=== PATIENT | female | born 1955 | race Caucasian/White ===

== ENCOUNTER 2018-03-18 17:10 | Inpatient (IN) | payer BC ==
[2018-03-18] MEDS ORDERED: ACETAMINOPHEN 325 MG TAB PO (19:00)
[2018-03-18] MEDS: hydrALAzine 20 MG INJ IV (19:11)
[2018-03-18] MEDS ORDERED: LORAZEPAM 2 MG INJ IV (20:00)
[2018-03-18] MEDS ORDERED: ONDANSETRON 4 MG INJ IV (20:00)
[2018-03-18] MEDS: LOSARTAN 50 MG TAB PO (20:59)
[2018-03-18] MEDS: CHLORDIAZEPOXIDE 25 MG CAP PO (20:59)
[2018-03-18] MEDS: LORAZEPAM 1 MG TAB PO (20:59)
[2018-03-18] MEDS: DEXTROSE 5%-0.45% NACL 1,000 ML IV (21:01)
[2018-03-19] MEDS: DEXTROSE 5%-0.45% NACL 1,000 ML IV ×3 (05:00→20:22)
[2018-03-19 06:01] LABS: ADD MAN DIFF? NO
[2018-03-19 06:19] LABS: BASOPHILS % 0.6 % (0.0-2.0); EOSINOPHILS # 0.1 10^3/ul (0.0-0.5); EOSINOPHILS % 1.9 % (0.0-7.0); HEMATOCRIT 38.6 % (37.0-47.0); HEMOGLOBIN 13.5 g/dl (12.0-16.0); LYMPHOCYTES # 1.2 10^3/ul (0.8-2.9); LYMPHOCYTES % 33.9 % (15.0-51.0); MEAN CORPUSCULAR HEMOGLOBIN 35.6 pg (29.0-33.0); MEAN CORPUSCULAR VOLUME 101.8 fl (82.0-101.0); MEAN PLATELET VOLUME 9.6 fl (7.4-10.4); MONOCYTE # 0.6 10^3/ul (0.3-0.9); MONOCYTES % 16.5 % (0.0-11.0); NEUTROPHIL # 1.7 10^3/ul (1.6-7.5); NEUTROPHILS % 46.8 % (39.0-77.0); PLATELET COUNT 120 10^3/UL (140-415); RED BLOOD COUNT 3.79 10^6/ul (4.20-5.40)
[2018-03-19 06:19] LABS: WHITE BLOOD COUNT 3.6 10^3/ul (4.8-10.8)
[2018-03-19] MEDS: PANTOPRAZOLE (EC) 40 MG TAB PO (06:59)
[2018-03-19 07:21] LABS: ALANINE AMINOTRANSFERASE 54 IU/L (13-69); ALBUMIN 3.8 g/dl (3.3-4.9); ALBUMIN/GLOBULIN RATIO 1.52; ALKALINE PHOSPHATASE 43 IU/L (42-121); ANION GAP 16 (8-16); ASPARTATE AMINO TRANSFERASE 68 IU/L (15-46); BILIRUBIN,INDIRECT 0.6 mg/dl (0-1.1); BILIRUBIN,TOTAL 0.6 mg/dl (0.2-1.3); BLOOD UREA NITROGEN 7 mg/dl (7-20); CALCIUM 8.7 mg/dl (8.4-10.2); CARBON DIOXIDE 21 mmol/L (21-31); CHLORIDE 104 mmol/L (97-110); CREATININE 0.61 mg/dl (0.44-1.00); GLUCOSE 115 mg/dl (70-220); MAGNESIUM 1.7 mg/dl (1.7-2.5); PHOSPHORUS 4.3 mg/dl (2.5-4.9); SODIUM 137 mmol/L (135-144); TOTAL PROTEIN 6.3 g/dl (6.1-8.1)
[2018-03-19] MEDS: LORAZEPAM 1 MG TAB PO ×2 (08:29→20:19)
[2018-03-19] MEDS: CHLORDIAZEPOXIDE 25 MG CAP PO ×3 (08:30→20:21)
[2018-03-19] MEDS: LOSARTAN 50 MG TAB PO ×2 (08:33→20:21)
[2018-03-19] MEDS: ATENOLOL 50 MG TAB PO (08:33)
[2018-03-19] MEDS: MULTIVITAMINS 10 ML, THIAMINE 100 MG, FOLIC ACID 1 MG in SOD CHLORIDE 0.9% 1,000 ML IVPB (09:40)
[2018-03-19] MEDS: CHOLECALCIFEROL 2,000 UNIT CAP PO (12:36)
[2018-03-20] MEDS: hydrALAzine 20 MG INJ IV ×2 (02:57→19:51)
[2018-03-20] MEDS: PANTOPRAZOLE (EC) 40 MG TAB PO (06:14)
[2018-03-20] MEDS: DEXTROSE 5%-0.45% NACL 1,000 ML IV ×2 (06:34→20:17)
[2018-03-20 07:16] LABS: ANION GAP 13 (8-16); BLOOD UREA NITROGEN 8 mg/dl (7-20); CALCIUM 8.9 mg/dl (8.4-10.2); CARBON DIOXIDE 20 mmol/L (21-31); CHLORIDE 112 mmol/L (97-110); CREATININE 0.63 mg/dl (0.44-1.00); GLUCOSE 102 mg/dl (70-220); POTASSIUM 3.6 mmol/L (3.5-5.1); SODIUM 141 mmol/L (135-144)
[2018-03-20] MEDS: LOSARTAN 50 MG TAB PO ×2 (09:10→20:18)
[2018-03-20] MEDS: ATENOLOL 50 MG TAB PO (09:11)
[2018-03-20] MEDS: CHOLECALCIFEROL 2,000 UNIT CAP PO (09:11)
[2018-03-20] MEDS: CHLORDIAZEPOXIDE 25 MG CAP PO ×3 (09:12→20:19)
[2018-03-20] MEDS: MULTIVITAMINS 10 ML, THIAMINE 100 MG, FOLIC ACID 1 MG in SOD CHLORIDE 0.9% 1,000 ML IVPB (09:12)
[2018-03-20] MEDS: LORAZEPAM 1 MG TAB PO ×2 (09:12→20:19)
[2018-03-21] MEDS: hydrALAzine 20 MG INJ IV (00:09)
[2018-03-21] MEDS: DEXTROSE 5%-0.45% NACL 1,000 ML IV ×2 (01:33→06:03)
[2018-03-21] MEDS: PANTOPRAZOLE (EC) 40 MG TAB PO (05:45)
[2018-03-21] MEDS: ATENOLOL 50 MG TAB PO (07:52)
[2018-03-21] MEDS: DOCUSATE SODIUM 100 MG CAP PO (07:53)
[2018-03-21] MEDS: LORAZEPAM 1 MG TAB PO ×2 (07:53→21:28)
[2018-03-21] MEDS: CHLORDIAZEPOXIDE 25 MG CAP PO ×3 (07:53→21:28)
[2018-03-21] MEDS: LOSARTAN 50 MG TAB PO ×2 (07:53→21:29)
[2018-03-21] MEDS: CHOLECALCIFEROL 2,000 UNIT CAP PO (07:53)
[2018-03-21] MEDS: MULTIVITAMINS 10 ML, THIAMINE 100 MG, FOLIC ACID 1 MG in SOD CHLORIDE 0.9% 1,000 ML IVPB (09:52)
[2018-03-22] MEDS: PANTOPRAZOLE (EC) 40 MG TAB PO (05:53)
[2018-03-22 06:37] LABS: PHOSPHORUS 4.2 mg/dl (2.5-4.9)
[2018-03-22 06:37] LABS: ALANINE AMINOTRANSFERASE 55 IU/L (13-69); ALBUMIN 3.3 g/dl (3.3-4.9); ALBUMIN/GLOBULIN RATIO 1.17; ALKALINE PHOSPHATASE 47 IU/L (42-121); ANION GAP 11 (8-16); ASPARTATE AMINO TRANSFERASE 42 IU/L (15-46); BILIRUBIN,INDIRECT 0.6 mg/dl (0-1.1); BILIRUBIN,TOTAL 0.6 mg/dl (0.2-1.3); BLOOD UREA NITROGEN 12 mg/dl (7-20); CALCIUM 8.5 mg/dl (8.4-10.2); CARBON DIOXIDE 22 mmol/L (21-31); CHLORIDE 109 mmol/L (97-110); CREATININE 0.63 mg/dl (0.44-1.00); GLUCOSE 92 mg/dl (70-220); MAGNESIUM 1.5 mg/dl (1.7-2.5); POTASSIUM 3.4 mmol/L (3.5-5.1); SODIUM 139 mmol/L (135-144); TOTAL PROTEIN 6.1 g/dl (6.1-8.1)
[2018-03-22] MEDS: LORAZEPAM 1 MG TAB PO ×2 (08:20→20:58)
[2018-03-22] MEDS: CHOLECALCIFEROL 2,000 UNIT CAP PO (08:20)
[2018-03-22] MEDS: CHLORDIAZEPOXIDE 25 MG CAP PO ×3 (08:21→20:58)
[2018-03-22] MEDS: LOSARTAN 50 MG TAB PO ×2 (08:21→20:57)
[2018-03-22] MEDS: ATENOLOL 50 MG TAB PO (08:21)
[2018-03-22] MEDS: MULTIVITAMINS 10 ML, THIAMINE 100 MG, FOLIC ACID 1 MG in SOD CHLORIDE 0.9% 1,000 ML IVPB (08:25)
[2018-03-22] MEDS: MAGNESIUM SULFATE 2 GM/50 ML 50 ML IVPB (19:46)
[2018-03-22] MEDS: POTASSIUM CHLORIDE (SR) 20 MEQ TAB PO (19:46)
[2018-03-23] MEDS: PANTOPRAZOLE (EC) 40 MG TAB PO (05:34)
[2018-03-23 06:29] LABS: ADD MAN DIFF? NO
[2018-03-23 06:38] LABS: WHITE BLOOD COUNT 4.8 10^3/ul (4.8-10.8)
[2018-03-23 06:38] LABS: BASOPHIL # 0.1 10^3/ul (0.0-0.1); EOSINOPHILS # 0.1 10^3/ul (0.0-0.5); EOSINOPHILS % 1.5 % (0.0-7.0); HEMATOCRIT 38.3 % (37.0-47.0); LYMPHOCYTES # 1.6 10^3/ul (0.8-2.9); LYMPHOCYTES % 33.6 % (15.0-51.0); MEAN CORPUSCULAR HEMOGLOBIN 34.9 pg (29.0-33.0); MEAN CORPUSCULAR HGB CONC 33.9 g/dl (32.0-37.0); MEAN CORPUSCULAR VOLUME 102.7 fl (82.0-101.0); MEAN PLATELET VOLUME 8.5 fl (7.4-10.4); MONOCYTE # 0.9 10^3/ul (0.3-0.9); MONOCYTES % 18.4 % (0.0-11.0); NEUTROPHIL # 2.2 10^3/ul (1.6-7.5); NEUTROPHILS % 45.3 % (39.0-77.0); PLATELET COUNT 163 10^3/UL (140-415); RED BLOOD COUNT 3.73 10^6/ul (4.20-5.40); RED CELL DISTRIBUTION WIDTH 11.6 % (11.5-14.5)
[2018-03-23 06:59] LABS: ANION GAP 14 (8-16); BLOOD UREA NITROGEN 11 mg/dl (7-20); CALCIUM 8.6 mg/dl (8.4-10.2); CARBON DIOXIDE 21 mmol/L (21-31); CHLORIDE 108 mmol/L (97-110); CREATININE 0.61 mg/dl (0.44-1.00); GLUCOSE 84 mg/dl (70-220); POTASSIUM 3.9 mmol/L (3.5-5.1); SODIUM 139 mmol/L (135-144)
[2018-03-23 07:06] LABS: MAGNESIUM 2.1 mg/dl (1.7-2.5)
[2018-03-23 07:06] LABS: PHOSPHORUS 3.6 mg/dl (2.5-4.9)
[2018-03-23] MEDS: ATENOLOL 50 MG TAB PO (09:10)
[2018-03-23] MEDS: CHOLECALCIFEROL 2,000 UNIT CAP PO (09:10)
[2018-03-23] MEDS: CHLORDIAZEPOXIDE 25 MG CAP PO ×2 (09:11→22:47)
[2018-03-23] MEDS: LORAZEPAM 1 MG TAB PO ×2 (09:11→22:46)
[2018-03-23] MEDS: LOSARTAN 50 MG TAB PO ×2 (09:11→22:47)
[2018-03-23] MEDS: MULTIVITAMINS 10 ML, THIAMINE 100 MG, FOLIC ACID 1 MG in SOD CHLORIDE 0.9% 1,000 ML IVPB (09:12)
[2018-03-23] MEDS: DOCUSATE SODIUM 100 MG CAP PO (09:21)
[2018-03-23] MEDS: AMLODIPINE 10 MG TAB PO (10:49)
[2018-03-23] MEDS: POLYETHYLENE GLYCOL 17 GM PACKET PO (18:55)
[2018-03-24] MEDS: hydrALAzine 20 MG INJ IV (03:20)
[2018-03-24] MEDS: PANTOPRAZOLE (EC) 40 MG TAB PO (06:00)
[2018-03-24] MEDS: MULTIVITAMINS 10 ML, THIAMINE 100 MG, FOLIC ACID 1 MG in SOD CHLORIDE 0.9% 1,000 ML IVPB (09:18)
[2018-03-24] MEDS: LORAZEPAM 1 MG TAB PO (09:18)
[2018-03-24] MEDS: LOSARTAN 50 MG TAB PO ×2 (09:18→21:29)
[2018-03-24] MEDS: CHLORDIAZEPOXIDE 25 MG CAP PO ×2 (09:18→21:29)
[2018-03-24] MEDS: POLYETHYLENE GLYCOL 17 GM PACKET PO (09:19)
[2018-03-24] MEDS: AMLODIPINE 10 MG TAB PO (09:19)
[2018-03-24] MEDS: CHOLECALCIFEROL 2,000 UNIT CAP PO (09:19)
[2018-03-24] MEDS: DOCUSATE SODIUM 100 MG CAP PO (09:19)
[2018-03-24] MEDS: ATENOLOL 50 MG TAB PO (09:19)
[2018-03-24 13:01] LABS: ANION GAP 12 (8-16); BLOOD UREA NITROGEN 8 mg/dl (7-20); CALCIUM 8.9 mg/dl (8.4-10.2); CARBON DIOXIDE 22 mmol/L (21-31); CHLORIDE 110 mmol/L (97-110); CREATININE 0.63 mg/dl (0.44-1.00); GLUCOSE 112 mg/dl (70-220); POTASSIUM 3.8 mmol/L (3.5-5.1); SODIUM 140 mmol/L (135-144)
[2018-03-24 13:02] LABS: PHOSPHORUS 4.3 mg/dl (2.5-4.9)
[2018-03-24 13:02] LABS: MAGNESIUM 1.7 mg/dl (1.7-2.5)
[2018-03-24] MEDS: NA PHOSPHATE/BIPHOS 133 ML ENEMA PR (17:35)
[2018-03-25] MEDS: PANTOPRAZOLE (EC) 40 MG TAB PO (06:25)
[2018-03-25] MEDS: LORAZEPAM 1 MG TAB PO (09:07)
[2018-03-25] MEDS: ATENOLOL 50 MG TAB PO (09:07)
[2018-03-25] MEDS: MULTIVITAMINS 10 ML, THIAMINE 100 MG, FOLIC ACID 1 MG in SOD CHLORIDE 0.9% 1,000 ML IVPB (09:07)
[2018-03-25] MEDS: CHOLECALCIFEROL 2,000 UNIT CAP PO (09:08)
[2018-03-25] MEDS: AMLODIPINE 10 MG TAB PO (09:08)
[2018-03-25] MEDS: LOSARTAN 50 MG TAB PO ×2 (09:08→21:39)
[2018-03-25] MEDS: CHLORDIAZEPOXIDE 25 MG CAP PO ×2 (09:08→21:39)
[2018-03-25] MEDS: POLYETHYLENE GLYCOL 17 GM PACKET PO (09:08)
[2018-03-26] MEDS: PANTOPRAZOLE (EC) 40 MG TAB PO (05:47)
[2018-03-26] MEDS: CHOLECALCIFEROL 2,000 UNIT CAP PO (08:44)
[2018-03-26] MEDS: LOSARTAN 50 MG TAB PO ×2 (08:44→20:46)
[2018-03-26] MEDS: THIAMINE 100 MG TAB PO (08:44)
[2018-03-26] MEDS: FOLIC ACID 0.4 MG TAB PO (08:44)
[2018-03-26] MEDS: ATENOLOL 50 MG TAB PO (08:44)
[2018-03-26] MEDS: CHLORDIAZEPOXIDE 25 MG CAP PO (08:44)
[2018-03-26] MEDS: POLYETHYLENE GLYCOL 17 GM PACKET PO (08:51)
[2018-03-27] MEDS: PANTOPRAZOLE (EC) 40 MG TAB PO (06:33)
[2018-03-27] MEDS: FOLIC ACID 0.4 MG TAB PO (09:16)
[2018-03-27] MEDS: CHOLECALCIFEROL 2,000 UNIT CAP PO (09:16)
[2018-03-27] MEDS: ATENOLOL 50 MG TAB PO (09:16)
[2018-03-27] MEDS: LOSARTAN 50 MG TAB PO ×2 (09:17→20:56)
[2018-03-27] MEDS: POLYETHYLENE GLYCOL 17 GM PACKET PO (09:17)
[2018-03-27] MEDS: CHLORDIAZEPOXIDE 25 MG CAP PO (09:20)
[2018-03-27] MEDS: THIAMINE 100 MG TAB PO (09:23)
[2018-03-28] MEDS: PANTOPRAZOLE (EC) 40 MG TAB PO (05:58)
[2018-03-28] MEDS: POLYETHYLENE GLYCOL 17 GM PACKET PO (09:00)
[2018-03-28] MEDS: CHOLECALCIFEROL 2,000 UNIT CAP PO (09:04)
[2018-03-28] MEDS: ATENOLOL 50 MG TAB PO (09:04)
[2018-03-28] MEDS: FOLIC ACID 0.4 MG TAB PO (09:04)
[2018-03-28] MEDS: LOSARTAN 50 MG TAB PO ×2 (09:05→20:14)
[2018-03-28] MEDS: CHLORDIAZEPOXIDE 25 MG CAP PO (09:05)
[2018-03-28] MEDS: THIAMINE 100 MG TAB PO (09:06)
[2018-03-29] MEDS: PANTOPRAZOLE (EC) 40 MG TAB PO (05:48)
[2018-03-29 07:34] LABS: ADD MAN DIFF? NO
[2018-03-29 07:48] LABS: BASOPHIL # 0.1 10^3/ul (0.0-0.1); BASOPHILS % 0.9 % (0.0-2.0); EOSINOPHILS # 0.1 10^3/ul (0.0-0.5); EOSINOPHILS % 1.3 % (0.0-7.0); HEMOGLOBIN 15.9 g/dl (12.0-16.0); LYMPHOCYTES # 1.7 10^3/ul (0.8-2.9); LYMPHOCYTES % 31.5 % (15.0-51.0); MEAN CORPUSCULAR HEMOGLOBIN 34.1 pg (29.0-33.0); MEAN CORPUSCULAR HGB CONC 33.8 g/dl (32.0-37.0); MEAN CORPUSCULAR VOLUME 100.9 fl (82.0-101.0); MONOCYTE # 0.6 10^3/ul (0.3-0.9); MONOCYTES % 10.5 % (0.0-11.0); NEUTROPHIL # 3.1 10^3/ul (1.6-7.5); NEUTROPHILS % 55.4 % (39.0-77.0); RED BLOOD COUNT 4.66 10^6/ul (4.20-5.40); RED CELL DISTRIBUTION WIDTH 11.7 % (11.5-14.5)
[2018-03-29 07:48] LABS: WHITE BLOOD COUNT 5.5 10^3/ul (4.8-10.8)
[2018-03-29 07:51] LABS: MEAN PLATELET VOLUME 10.5 fl (7.4-10.4); PLATELET COUNT 212 10^3/UL (140-415); POSITIVE DIFF @See below
[2018-03-29] MEDS: THIAMINE 100 MG TAB PO (08:03)
[2018-03-29] MEDS: CHLORDIAZEPOXIDE 25 MG CAP PO (08:03)
[2018-03-29] MEDS: DOCUSATE SODIUM 100 MG CAP PO (08:03)
[2018-03-29] MEDS: FOLIC ACID 0.4 MG TAB PO (08:03)
[2018-03-29] MEDS: CHOLECALCIFEROL 2,000 UNIT CAP PO (08:03)
[2018-03-29] MEDS: LOSARTAN 50 MG TAB PO ×2 (08:04→20:19)
[2018-03-29] MEDS: ATENOLOL 50 MG TAB PO (08:04)
[2018-03-29] MEDS: POLYETHYLENE GLYCOL 17 GM PACKET PO (08:05)
[2018-03-29 12:00] LABS: ALANINE AMINOTRANSFERASE 46 IU/L (13-69); ALBUMIN 3.7 g/dl (3.3-4.9); ALBUMIN/GLOBULIN RATIO 1.27; ALKALINE PHOSPHATASE 50 IU/L (42-121); ANION GAP 17 (8-16); ASPARTATE AMINO TRANSFERASE 48 IU/L (15-46); BILIRUBIN,INDIRECT 0.5 mg/dl (0-1.1); BILIRUBIN,TOTAL 0.5 mg/dl (0.2-1.3); BLOOD UREA NITROGEN 12 mg/dl (7-20); CALCIUM 9.1 mg/dl (8.4-10.2); CARBON DIOXIDE 20 mmol/L (21-31); CHLORIDE 106 mmol/L (97-110); CREATININE 0.66 mg/dl (0.44-1.00); GLUCOSE 169 mg/dl (70-220); POTASSIUM 3.7 mmol/L (3.5-5.1); SODIUM 139 mmol/L (135-144); TOTAL PROTEIN 6.6 g/dl (6.1-8.1)
[2018-03-30] MEDS: PANTOPRAZOLE (EC) 40 MG TAB PO (06:11)
[2018-03-30] MEDS: FOLIC ACID 0.4 MG TAB PO (08:07)
[2018-03-30] MEDS: CHOLECALCIFEROL 2,000 UNIT CAP PO (08:07)
[2018-03-30] MEDS: LOSARTAN 50 MG TAB PO ×2 (08:07→20:35)
[2018-03-30] MEDS: THIAMINE 100 MG TAB PO (08:07)
[2018-03-30] MEDS: CHLORDIAZEPOXIDE 25 MG CAP PO (08:07)
[2018-03-30] MEDS: POLYETHYLENE GLYCOL 17 GM PACKET PO (08:08)
[2018-03-30] MEDS: ATENOLOL 50 MG TAB PO (08:08)
[2018-03-31] MEDS: PANTOPRAZOLE (EC) 40 MG TAB PO (06:11)
[2018-03-31 06:54] LABS: ANION GAP 13 (8-16); BLOOD UREA NITROGEN 12 mg/dl (7-20); CALCIUM 9.4 mg/dl (8.4-10.2); CARBON DIOXIDE 28 mmol/L (21-31); CHLORIDE 105 mmol/L (97-110); CREATININE 0.76 mg/dl (0.44-1.00); GLUCOSE 120 mg/dl (70-220); SODIUM 142 mmol/L (135-144)
[2018-03-31] MEDS: LOSARTAN 50 MG TAB PO ×2 (08:24→20:37)
[2018-03-31] MEDS: THIAMINE 100 MG TAB PO (08:25)
[2018-03-31] MEDS: ATENOLOL 50 MG TAB PO (08:25)
[2018-03-31] MEDS: CHOLECALCIFEROL 2,000 UNIT CAP PO (08:25)
[2018-03-31] MEDS: FOLIC ACID 0.4 MG TAB PO (08:25)
[2018-03-31] MEDS: POLYETHYLENE GLYCOL 17 GM PACKET PO ×2 (08:25→08:29)
[2018-03-31] MEDS: CHLORDIAZEPOXIDE 25 MG CAP PO (08:26)
[2018-04-01] MEDS: PANTOPRAZOLE (EC) 40 MG TAB PO (05:52)
[2018-04-01] MEDS: FOLIC ACID 0.4 MG TAB PO (08:20)
[2018-04-01] MEDS: CHOLECALCIFEROL 2,000 UNIT CAP PO (08:20)
[2018-04-01] MEDS: POLYETHYLENE GLYCOL 17 GM PACKET PO (08:20)
[2018-04-01] MEDS: ATENOLOL 50 MG TAB PO (08:20)
[2018-04-01] MEDS: LOSARTAN 50 MG TAB PO ×2 (08:20→21:57)
[2018-04-01] MEDS: THIAMINE 100 MG TAB PO (08:20)
[2018-04-01] MEDS: CHLORDIAZEPOXIDE 25 MG CAP PO (08:21)
[2018-04-02] MEDS: PANTOPRAZOLE (EC) 40 MG TAB PO (06:23)
[2018-04-02] MEDS: POLYETHYLENE GLYCOL 17 GM PACKET PO ×2 (09:38→09:40)
[2018-04-02] MEDS: FOLIC ACID 0.4 MG TAB PO (09:39)
[2018-04-02] MEDS: ATENOLOL 50 MG TAB PO (09:39)
[2018-04-02] MEDS: LOSARTAN 50 MG TAB PO ×2 (09:39→20:35)
[2018-04-02] MEDS: THIAMINE 100 MG TAB PO (09:39)
[2018-04-02] MEDS: CHOLECALCIFEROL 2,000 UNIT CAP PO (09:39)
[2018-04-02] MEDS: CHLORDIAZEPOXIDE 25 MG CAP PO (09:39)
[2018-04-03] MEDS: PANTOPRAZOLE (EC) 40 MG TAB PO (05:51)
[2018-04-03] MEDS: CHLORDIAZEPOXIDE 25 MG CAP PO (09:16)
[2018-04-03] MEDS: THIAMINE 100 MG TAB PO (09:16)
[2018-04-03] MEDS: POLYETHYLENE GLYCOL 17 GM PACKET PO (09:16)
[2018-04-03] MEDS: CHOLECALCIFEROL 2,000 UNIT CAP PO (09:16)
[2018-04-03] MEDS: FOLIC ACID 0.4 MG TAB PO (09:16)
[2018-04-03] MEDS: LOSARTAN 50 MG TAB PO ×2 (09:17→21:40)
[2018-04-03] MEDS: ATENOLOL 50 MG TAB PO (09:17)
[2018-04-04] MEDS: PANTOPRAZOLE (EC) 40 MG TAB PO (06:22)
[2018-04-04] MEDS: POLYETHYLENE GLYCOL 17 GM PACKET PO (09:00)
[2018-04-04] MEDS: ATENOLOL 50 MG TAB PO (10:04)
[2018-04-04] MEDS: LOSARTAN 50 MG TAB PO ×2 (10:04→20:52)
[2018-04-04] MEDS: CHOLECALCIFEROL 2,000 UNIT CAP PO (10:04)
[2018-04-04] MEDS: FOLIC ACID 0.4 MG TAB PO (10:04)
[2018-04-04] MEDS: THIAMINE 100 MG TAB PO (10:05)
[2018-04-05] MEDS: PANTOPRAZOLE (EC) 40 MG TAB PO (05:47)
[2018-04-05 07:25] LABS: PHOSPHORUS 4.6 mg/dl (2.5-4.9)
[2018-04-05 07:25] LABS: MAGNESIUM 1.5 mg/dl (1.7-2.5)
[2018-04-05 07:29] LABS: ALANINE AMINOTRANSFERASE 43 IU/L (13-69); ALBUMIN/GLOBULIN RATIO 1.29; ALKALINE PHOSPHATASE 50 IU/L (42-121); ANION GAP 16 (8-16); ASPARTATE AMINO TRANSFERASE 38 IU/L (15-46); BILIRUBIN,INDIRECT 0.5 mg/dl (0-1.1); BILIRUBIN,TOTAL 0.5 mg/dl (0.2-1.3); BLOOD UREA NITROGEN 13 mg/dl (7-20); CALCIUM 9.3 mg/dl (8.4-10.2); CARBON DIOXIDE 25 mmol/L (21-31); CHLORIDE 106 mmol/L (97-110); CREATININE 0.83 mg/dl (0.44-1.00); GLUCOSE 137 mg/dl (70-220); POTASSIUM 4.2 mmol/L (3.5-5.1); SODIUM 143 mmol/L (135-144); TOTAL PROTEIN 7.1 g/dl (6.1-8.1)
[2018-04-05] MEDS: THIAMINE 100 MG TAB PO (08:57)
[2018-04-05] MEDS: CHOLECALCIFEROL 2,000 UNIT CAP PO (08:58)
[2018-04-05] MEDS: FOLIC ACID 0.4 MG TAB PO (08:58)
[2018-04-05] MEDS: LOSARTAN 50 MG TAB PO ×2 (08:58→20:29)
[2018-04-05] MEDS: ATENOLOL 50 MG TAB PO (08:58)
[2018-04-05] MEDS: POLYETHYLENE GLYCOL 17 GM PACKET PO (08:58)
[2018-04-05] MEDS: MAGNESIUM SULFATE 2 GM/50 ML 50 ML IVPB (11:45)
[2018-04-05] MEDS: MAGNESIUM OXIDE 400 MG TAB PO (12:05)
[2018-04-06] MEDS: PANTOPRAZOLE (EC) 40 MG TAB PO (06:05)
[2018-04-06] MEDS: FOLIC ACID 0.4 MG TAB PO (08:46)
[2018-04-06] MEDS: POLYETHYLENE GLYCOL 17 GM PACKET PO (08:46)
[2018-04-06] MEDS: THIAMINE 100 MG TAB PO (08:46)
[2018-04-06] MEDS: LOSARTAN 50 MG TAB PO (08:46)
[2018-04-06] MEDS: CHOLECALCIFEROL 2,000 UNIT CAP PO (08:46)
[2018-04-06] MEDS: ATENOLOL 50 MG TAB PO (08:46)
== END 2018-04-06 10:30 | disposition home or self-care (01) | DRG 897 ==
LOC: MS2 17:10
DX: F10.231 Alcohol dependence with withdrawal delirium (principal); I10 Essential (primary) hypertension; G40.909 Epilepsy, unspecified, not intractable, without status epilepticus; D64.9 Anemia, unspecified; R53.1 Weakness; D69.6 Thrombocytopenia, unspecified
CPT/HCPCS: 80048; 80053; 82962; 83735; 84100; 85025; 87081; 97110; 97116; 97161; 97530